=== PATIENT | female | born 2000 | race Caucasian/White ===

== ENCOUNTER 2018-09-11 15:25 | Inpatient (IN) | payer OTHER ==
[2018-09-11] MEDS ORDERED: CITRIC ACID/SODIUM CITRATE 30 ML UNIT-DOSE CUP PO ONE (17:22)
[2018-09-11 17:30] VITALS: BMI 26.8
[2018-09-11] MEDS ORDERED: ELECTROLYTE-148 SOLN 1,000 ML IV SCH (17:30)
[2018-09-11 18:51] LABS: BASO % 0.5 % (0-2.0); EOS % 1.7 % (0-4.5); HEMATOCRIT 37.2 % (32.4-45.2); LYMPH % 18.7 % (8-40); MCH 33.4 pg (25.7-33.7); MCHC 35.1 g/dl (32.0-36.0); MEAN CELL VOLUME 95.3 fl (80-96); MEAN PLT VOLUME 10.1 fl (7.5-11.1); MONO % 10.2 % (3.8-10.2); NEUT % 68.9 % (42.8-82.8); PLATELET COUNT 161 K/MM3 (134-434); RDW 13.2 % (11.6-15.6); WHITE BLOOD COUNT 6.5 K/mm3 (4.0-10.0)
[2018-09-11 19:12] LABS: INR 1.06 (0.83-1.09); PROTHROMBIN TIME (PATIENT) 12.5 SEC (9.7-13.0)
[2018-09-11 19:14] LABS: ACTIVATED PTT 28.4 SECONDS (25.2-36.5)
[2018-09-11] MEDS ORDERED: OXYTOCIN 20 UNITS in 0.9% NS 20 UNIT/1,000 ML INFUS.BAG IV ONE (19:26)
[2018-09-11 19:59] LABS: ANION GAP 10 MMOL/L (8-16); BLOOD UREA NITROGEN 5 mg/dL (7-18); CALCIUM 8.2 mg/dL (8.5-10.1); CHLORIDE 106 mmol/L (98-107); CO2 22 mmol/L (21-32); CREATININE 0.3 mg/dL (0.55-1.3); GLUCOSE,RANDOM 71 mg/dL (74-106); POTASSIUM 4.2 mmol/L (3.5-5.1); SODIUM 139 mmol/L (136-145)
--- NOTE | 2018-09-11 20:01 | HP ---
Past Medical History - Primary Care Physician PCP:: Quinton Dixon - Admission Chief Complaint: 40.4 weeks, post date, early labor, contracted pelvis , CPD, request of c/s History of Present Illness: 18 yo f 40.4 weeks c/o of contraction , cx 1 cm 70 vx -4 , fhr cat 1, patient has diverging pelvic side wall,contracted pelvis , unable to tolerate pelvic exam , efw 8 lb , vaginal delivery vs c/s discussed with patient via group care worker, risks and benfit of each explained to patient History Source: Patient Limitations to Obtaining History: No Limitations - Past Medical History ...: 2 ...Para: 0 ...Term: 0 ...: 0 ...Spon : 1 ...Induced : 0 ...Multiple Gestation: 0 ...EDC by Sono: 09/07/18 - Past Surgical History Hx Myomectomy: No Hx Transabdominal Cerclage: No - Smoking History Smoking history: Never smoked Have you smoked in the past 12 months: No - Alcohol/Substance Use Hx Alcohol Use: No - Social History Usual Living Arrangement: Yes: With Spouse History of Recent Travel: No Home Medications - Allergies Allergies/Adverse Reactions: Allergies Allergy/AdvReac Type Severity Reaction Status Date / Time No Known Drug Allergies Allergy Verified 09/11/18 17:30 - Home Medications Home Medications: Ambulatory Orders Ferrous Sulfate 325 mg PO DAILY 06/26/18 Vitamins (Sjr) - 1 tab PO DAILY 06/26/18 Review of Systems - Review of Systems Constitutional: reports: Malaise Eyes: reports: No Symptoms HENT: reports: Toothache Neck: reports: No Symptoms Cardiovascular: reports: No Symptoms Respiratory: reports: No Symptoms Gastrointestinal: reports: No Symptoms Genitourinary: reports: Frequency, Pain Breasts: reports: No Symptoms Reported Musculoskeletal: reports: Back Pain, Muscle Cramps Integumentary: reports: No Symptoms Neurological: reports: No Symptoms Endocrine: reports: No Symptoms Hematology/Lymphatic: reports: No Symptoms Psychiatric: reports: No Symptoms Physical Exam - Maternity Vital Signs: Vital Signs Temperature 98.1 F 09/11/18 18:00 Pulse Rate 98 H 09/11/18 18:00 Respiratory Rate 20 09/11/18 18:00 Blood Pressure 123/62 09/11/18 18:00 O2 Sat by Pulse Oximetry (%) Constitutional: Yes: Well Nourished, No Distress, Calm Eyes: Yes: WNL, Conjunctiva Clear, EOM Intact HENT: Yes: WNL, Atraumatic, Normocephalic Neck: Yes: WNL, Supple, Trachea Midline Cardiovascular: Yes: WNL, Regular Rate and Rhythm Breast(s): Yes: WNL - Abdominal Exam/OB Fundal Height: 40 Number of Fetuses: Single Presentation: Vertex Contractions: Yes Regularity: Irregular Intensity: Mod/Strong Heart Rate Location: LLQ Accelerations: Uniform Decelerations: None - Vaginal Exam/OB Vaginal Bleediing: Bloody Show Speculum Exam: No Dilatation (cm): 1cm Effacement (%): 70 Amniotic Membrane Status: Intact Presentation: Vertex/Position Station: -4 - Physical Exam Musculoskeletal: Yes: WNL Extremities: Yes: WNL Edema: Yes Edema: LLE: Trace, RLE: Trace Deep Tendon Reflex Grade: Normal +2 - Labs Lab Results: CBC, BMP 09/11/18 18:30 Hemorrhage Risk Assessment - Risk Factors Medium Risk Factors: Yes: None High Risk Factors: Yes: None Risk Score: 1 Risk Level: Medium Risk Problem List - Problems (1) Post term over 40 weeks Code(s): O48.0 - POST-TERM (2) Labor and delivery affected by abnormality of maternal pelvic organs Code(s): O75.89 - OTHER SPECIFIED COMPLICATIONS OF LABOR AND DELIVERY; O34.80 - MATERNAL CARE FOR OTH ABNLT OF PELVIC ORGANS, UNSP TRIMESTER (3) CPD (cephalo-pelvic disproportion) Code(s): O33.9 - MATERNAL CARE FOR DISPROPORTION, UNSPECIFIED Qualifiers: Cephalopelvic disproportion type: deformity of maternal pelvic bones Qualified Code(s): O33.0 - Maternal care for disproportion due to deformity of maternal pelvic bones Assessment/Plan afterdiscussion of pelvic finding and option discussed with patient, she is requesting c/s , risks discussed via group care worker plan for c/s
[2018-09-11] MEDS ORDERED: ceFAZolin SODIUM 1 GM VIAL ONE (22:15)
[2018-09-11] MEDS ORDERED: morphine SULFATE/Preservative Free 0.5 MG/ML (1cc Syringe) ONE (22:15)
[2018-09-11] MEDS ORDERED: morphine SULFATE/Preservative Free 0.5 MG/ML (1cc Syringe) SPIN ONE (22:26)
[2018-09-11] MEDS ORDERED: oxyCODONE HCL 5 MG TABLET PO PRN (23:09)
[2018-09-11] MEDS ORDERED: IBUPROFEN 600 MG TABLET (FP) PO PRN (23:09)
[2018-09-11] MEDS ORDERED: WITCH HAZEL 50% (TUCKS) 40 PAD/JAR PAD TP PRN (23:09)
[2018-09-11] MEDS ORDERED: BENZOCAINE 20% 57 GM BOTTLE TP PRN (23:09)
[2018-09-11] MEDS ORDERED: METHYLERGONOVINE MALEATE 0.2 MG/1 ML AMP IM PRN (23:09)
[2018-09-11] MEDS ORDERED: diphenhydrAMINE HCL 25 MG CAPSULE (FP) PO PRN (23:09)
[2018-09-11] MEDS ORDERED: BENZOCAINE 28 GM HEMORRHOIDAL OINTMENT PR PRN (23:09)
[2018-09-11] MEDS ORDERED: OXYTOCIN 20 UNITS in 0.9% NS 20 UNIT/1,000 ML INFUS.BAG IV SCH (23:15)
--- NOTE | 2018-09-11 23:52 | OP ---
DATE OF OPERATION: 09/11/2018 PREOPERATIVE DIAGNOSIS: Postdates , early labor, cephalopelvic disproportion, request section. POSTOPERATIVE DIAGNOSIS: Postdates , early labor, cephalopelvic disproportion, request section. PROCEDURE: Primary low segment transverse section. SURGEON: Khadijah Dixon M.D. CARPENTRY TEACHER: Steven Tomas ANESTHESIA: Spinal. ANESTHESIOLOGIST: Sreedhar Lewis M.D. ESTIMATED BLOOD LOSS: About 500 mL. FINDINGS: A live baby boy, Apgars 9 and 9. ROT position. OPERATION: Patient was taken to operating room with adequate epidural anesthesia. Abdomen and perineum were prepped and draped. Pfannenstiel abdominal skin incision was made. Abdominal wall was cut layer by layer until the peritoneum was exposed and incised. Upon entering the abdominal cavity, the lower uterine segment was identified, and uterovesical fold of the peritoneum was established. The bladder was pushed down. Then with the lower blade of the [place] retractor, a low transverse incision was made. The incision extended laterally. Amniotic sac was entered. Clear fluid. Head delivered. Nasopharynx was suctioned. A live baby was delivered without any difficulty. Placenta was delivered manually. Uterine cavity was cleared of all remaining tissue. Uterine incision was closed in 2 layers, the 1st layer with 0 Biosyn continuous suture, the 2nd layer with 0 Biosyn imbricating the 1st layer. There was some oozing on the mid portion of the incision which was sutured with interrupted suture of 0 Biosyn and hemostasis was established. Bladder flap was closed with 2-0 Biosyn continuous suture. Pelvic cavity several times irrigated, and no active bleeding was seen. All the lap, sponge, and instrument counts were correct. Peritoneum was closed with 0 Biosyn continuous suture. Muscles were brought together interrupted suture with 0 Biosyn. Fascia was closed with 0 Biosyn continuous sutures. Subcutaneous fat was closed with interrupted sutures 0 Biosyn, and the skin was closed with michelle. The patient tolerated the procedure well and left the OR in good condition. KHADIJAH DIXON M.D. [id number]
[2018-09-12] MEDS ORDERED: IBUPROFEN 800 MG/8 ML IJ IVPB ONE (00:02)
[2018-09-12] MEDS: IBUPROFEN 800 MG/8 ML IJ IVPB PRN ×2 (00:05→08:15)
[2018-09-12] MEDS: DEXTROSE 5%-LACTATED RINGERS 1,000 ML IV SCH (00:09)
[2018-09-12] MEDS: ONDANSETRON 4 MG/2 ML VIAL IVPUSH PRN ×3 (01:21→11:13)
[2018-09-12] MEDS: CEFAZOLIN 1 GM/D5W 1 GM/50 ML BAG IVPB SCH ×2 (03:03→10:03)
[2018-09-12 06:03] LABS: BASO % 0.5 % (0-2.0); EOS % 0.5 % (0-4.5); HEMATOCRIT 32.3 % (32.4-45.2); HEMOGLOBIN 11.4 GM/dL (10.7-15.3); LYMPH % 16.8 % (8-40); MCH 33.4 pg (25.7-33.7); MCHC 35.4 g/dl (32.0-36.0); MEAN CELL VOLUME 94.3 fl (80-96); MEAN PLT VOLUME 9.5 fl (7.5-11.1); MONO % 8.1 % (3.8-10.2); NEUT % 74.1 % (42.8-82.8); PLATELET COUNT 141 K/MM3 (134-434); RBC 3.42 M/mm3 (3.60-5.2); RDW 12.6 % (11.6-15.6); WHITE BLOOD COUNT 8.6 K/mm3 (4.0-10.0)
--- NOTE | 2018-09-12 08:23 | PN ---
Progress Note (short form) - Note Progress Note: pod 1, has mild cramps , occasional nausea CBC, BMP 09/12/18 05:56 09/11/18 18:30 Last Vital Signs Temp Pulse Resp BP Pulse Ox 97.7 F 103 H 20 95/55 L 100 09/12/18 06:14 09/12/18 06:14 09/12/18 06:14 09/12/18 06:14 09/11/18 23:45 abdomen soft, no distension, no cav uterus firm lochia mild no calf tenderness reed clear urine . impression pod 1 doing well, plan ambulate, advnce diet pain management Problem List - Problems (1) Post term over 40 weeks Code(s): O48.0 - POST-TERM (2) Labor and delivery affected by abnormality of maternal pelvic organs Code(s): O75.89 - OTHER SPECIFIED COMPLICATIONS OF LABOR AND DELIVERY; O34.80 - MATERNAL CARE FOR OTH ABNLT OF PELVIC ORGANS, UNSP TRIMESTER (3) CPD (cephalo-pelvic disproportion) Code(s): O33.9 - MATERNAL CARE FOR DISPROPORTION, UNSPECIFIED Qualifiers: Cephalopelvic disproportion type: deformity of maternal pelvic bones Qualified Code(s): O33.0 - Maternal care for disproportion due to deformity of maternal pelvic bones
--- NOTE | 2018-09-12 08:49 | PN ---
Progress Note (short form) - Note Progress Note: Anesthesia POD#1 S/P under Spinal with Duramorh VSS,some nausea, some pain,full leg strength No other complications seen. Amirah Lester MD.
[2018-09-12] MEDS: ENOXAPARIN NA (PORCINE) 40 MG/0.4 ML DISP.SYRIN SQ SCH (10:00)
[2018-09-12] MEDS: IBUPROFEN 600 MG TABLET (FP) PO PRN (17:45)
[2018-09-12] MEDS: ACETAMINOPHEN 325 MG TABLET (FP) PO PRN (17:45)
[2018-09-12] MEDS ORDERED: BISACODYL 10 MG SUPP.RECT PR PRN (23:09)
[2018-09-13] MEDS: SIMETHICONE 80 MG TAB.CHEW (FP) PO PRN ×4 (01:45→20:51)
[2018-09-13] MEDS: oxyCODONE HCL 5 MG TABLET PO PRN ×3 (01:49→16:58)
[2018-09-13] MEDS: IBUPROFEN 600 MG TABLET (FP) PO PRN ×3 (01:49→16:59)
[2018-09-13] MEDS: ENOXAPARIN NA (PORCINE) 40 MG/0.4 ML DISP.SYRIN SQ SCH (09:15)
--- NOTE | 2018-09-13 10:54 | PN ---
Progress Note (short form) - Note Progress Note: pod 2 no c/o ,voids ok, passing gas CBC, BMP 09/12/18 05:56 09/11/18 18:30 Last Vital Signs Temp Pulse Resp BP Pulse Ox 98.9 F 66 18 100/57 L 100 09/13/18 07:20 09/13/18 07:20 09/13/18 07:20 09/13/18 07:20 09/11/18 23:45 abdomen soft, no distention no cva , BS present incision dry, clean no calf tenderness pod 2 afebrile plan ambulate, advance diet, cbc in am Problem List - Problems (1) Post term over 40 weeks Code(s): O48.0 - POST-TERM (2) Labor and delivery affected by abnormality of maternal pelvic organs Code(s): O75.89 - OTHER SPECIFIED COMPLICATIONS OF LABOR AND DELIVERY; O34.80 - MATERNAL CARE FOR OTH ABNLT OF PELVIC ORGANS, UNSP TRIMESTER (3) CPD (cephalo-pelvic disproportion) Code(s): O33.9 - MATERNAL CARE FOR DISPROPORTION, UNSPECIFIED Qualifiers: Cephalopelvic disproportion type: deformity of maternal pelvic bones Qualified Code(s): O33.0 - Maternal care for disproportion due to deformity of maternal pelvic bones
[2018-09-13] MEDS ORDERED: SENNOSIDES/DOCUSATE COMBO (SENNA PLUS) TABLET (UD) PO PRN (22:00)
[2018-09-14] MEDS: ACETAMINOPHEN 325 MG TABLET (FP) PO PRN (01:16)
[2018-09-14] MEDS: oxyCODONE HCL 5 MG TABLET PO PRN ×3 (01:16→12:51)
[2018-09-14] MEDS: SIMETHICONE 80 MG TAB.CHEW (FP) PO PRN ×3 (01:17→12:51)
[2018-09-14] MEDS: IBUPROFEN 600 MG TABLET (FP) PO PRN ×2 (07:25→12:51)
[2018-09-14 08:17] LABS: BASO % 0.3 % (0-2.0); EOS % 0.9 % (0-4.5); HEMATOCRIT 33.6 % (32.4-45.2); LYMPH % 22.4 % (8-40); MCH 34.2 pg (25.7-33.7); MCHC 35.7 g/dl (32.0-36.0); MEAN CELL VOLUME 95.8 fl (80-96); MEAN PLT VOLUME 9.7 fl (7.5-11.1); MONO % 8.3 % (3.8-10.2); NEUT % 68.1 % (42.8-82.8); PLATELET COUNT 154 K/MM3 (134-434); RDW 12.8 % (11.6-15.6); WHITE BLOOD COUNT 7.2 K/mm3 (4.0-10.0)
[2018-09-14] MEDS: ENOXAPARIN NA (PORCINE) 40 MG/0.4 ML DISP.SYRIN SQ SCH (10:10)
--- NOTE | 2018-09-14 10:10 | PN ---
Progress Note (short form) - Note Progress Note: pod 3 doing well, has low abdominal cramps, passing gas, voids ok CBC, BMP 09/14/18 07:15 09/11/18 18:30 Last Vital Signs Temp Pulse Resp BP Pulse Ox 97.9 F 80 20 97/64 100 09/14/18 07:20 09/14/18 07:20 09/14/18 07:20 09/14/18 07:20 09/11/18 23:45 abdomen soft, no distension, no cva , BS present incison dry, clean no calf tenderness pod 3 doing well plan pain management , for d/c home in am Problem List - Problems (1) Post term over 40 weeks Code(s): O48.0 - POST-TERM (2) Labor and delivery affected by abnormality of maternal pelvic organs Code(s): O75.89 - OTHER SPECIFIED COMPLICATIONS OF LABOR AND DELIVERY; O34.80 - MATERNAL CARE FOR OTH ABNLT OF PELVIC ORGANS, UNSP TRIMESTER (3) CPD (cephalo-pelvic disproportion) Code(s): O33.9 - MATERNAL CARE FOR DISPROPORTION, UNSPECIFIED Qualifiers: Cephalopelvic disproportion type: deformity of maternal pelvic bones Qualified Code(s): O33.0 - Maternal care for disproportion due to deformity of maternal pelvic bones
[2018-09-15] MEDS: DEXTROSE 5%-LACTATED RINGERS 1,000 ML IV SCH ×2 (02:14→02:31)
[2018-09-15] MEDS: IBUPROFEN 600 MG TABLET (FP) PO PRN ×2 (02:17→10:10)
[2018-09-15] MEDS: ACETAMINOPHEN 325 MG TABLET (FP) PO PRN ×2 (02:18→10:10)
--- NOTE | 2018-09-15 08:27 | DS ---
Physical Exam-CAMPUS REP Vital Signs: Vital Signs Temperature 98.1 F 09/14/18 21:45 Pulse Rate 93 H 09/14/18 21:45 Respiratory Rate 20 09/14/18 21:45 Blood Pressure 107/61 09/14/18 21:45 O2 Sat by Pulse Oximetry (%) 100 09/11/18 23:45 Constitutional: Yes: Well Nourished, No Distress, Calm Eyes: Yes: WNL, Conjunctiva Clear, EOM Intact HENT: Yes: WNL, Atraumatic, Normocephalic Neck: Yes: WNL, Supple, Trachea Midline Cardiovascular: Yes: WNL, Regular Rate and Rhythm Respiratory: Yes: WNL, Regular, CTA Bilaterally Gastrointestinal: Yes: WNL ...Rectal Exam: Yes: WNL Renal/: Yes: WNL ....Post : Yes: Uterus firm, Uterus non-tender, Slight lochia rubra Breast(s): Yes: WNL Musculoskeletal: Yes: WNL Extremities: Yes: WNL Integumentary: Yes: WNL Wound/Incision: Yes: Clean/Dry, Well Approximated, [place] Intact Neurological: Yes: WNL, Alert, Oriented ...Motor Strength: WNL Psychiatric: Yes: WNL, Alert, Oriented Labs: CBC, BMP 09/14/18 07:15 09/11/18 18:30 Delivery - Delivery Section: Primary, Low Flap Transverse (no complication) Type of Anesthesia: Spinal Episiotomy/Laceration: None EBL (cc): 500 Delivery, Single - Stages of Labor Date of Delivery: 09/11/18 Time of Delivery: 22:39 Time Placenta Delivered: 22:40 Placenta: Yes: Expressed - Condition of Director Of Entertainment/Brake Lining Finisher Present: No Gender: Male Weight: 7 lb 11 oz Position: Left, OA Total Hours ROM (Hrs/Mins): 2MIN. - 1 Minute Total Score: 9 5 Minutes Total Score: 9 - [place] Feeding Plan Initial Plan: Elected not to breastfeed exclusively throughout hospitalization Discharge Summary Reason For Visit: LABOR Current Active Problems CPD (cephalo-pelvic disproportion) (Acute) Labor and delivery affected by abnormality of maternal pelvic organs (Acute) Post term over 40 weeks (Acute) Procedures: Principal: primary LST c/s Condition: Good - Instructions Diet, Activity, Other Instructions: regular, diet, no intercourse , follow up [facility] 1week for michelle removal if fever, pain, heavy vaginal bleeding call md rowan p[facility] Referrals: Quinton Dixon MD [Staff Physician] - Disposition: HOME - Home Medications Comprehensive Discharge Medication List: Ambulatory Orders Ferrous Sulfate 325 mg PO DAILY 06/26/18 Vitamins (Sjr) - 1 tab PO DAILY 06/26/18 Ibuprofen [Motrin -] 600 mg PO QID #28 tablet 09/13/18
[2018-09-15 09:05] VITALS: BP 97/64; PULSE 78; TEMP 97.9
[2018-09-15] MEDS: SIMETHICONE 80 MG TAB.CHEW (FP) PO PRN (10:10)
[2018-09-15] MEDS: ENOXAPARIN NA (PORCINE) 40 MG/0.4 ML DISP.SYRIN SQ SCH (10:11)
--- NOTE | 2018-09-23 17:46 | PATH ---
Surgical Pathology Report Patient Name: DARREN KOO [facility]. Rec. 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 Specimen(s) Received PLACENTA Clinical History , cephaopelvic disproportion SPAB x1 2018, Dengue fever 2016 Late to [facility], history of short cervix, celestene x2 06/14/18 Final Diagnosis PLACENTA: THIRD TRIMESTER PLACENTA WITH FOCAL SUBCHORIONIC ACUTE INFLAMMATION. TRIVASCULAR CORD. MEMBRANES WITH NO DIAGNOSTIC ABNORMALITIES. Electronically Signed Caleb Jiménez M.D. Gross Description The specimen is received fresh labeled placenta and is a 496 gram, 6.5 x 15.0 x 2.7 cm. placenta with attached membranes and umbilical cord. The attached membranes are smith, thick, cloudy and insert marginally. The umbilical cord measures 30 cm. in length and averages 1 cm. in diameter. The cord inserts eccentrically, 5 cm. to the nearest margin. No true knots or strictures are identified. Cut surface of the umbilical cord reveals 3 vessels. The surface is chakraborty-blue with minimal fibrin deposition and appropriate caliber vessels. The maternal surface is red-brown with focal defects. Sectioning reveals red-brown, spongy parenchyma. No lesions are identified. Internet Sales Consultant sections are submitted in three cassettes as follows: 1- membrane rolls and umbilical cord; 2-3- full thickness sections of placenta. /09/22/2018 [facility]09/22/2018
== END 2018-09-15 13:15 | disposition home or self-care (01) | DRG 540 ==
LOC: JDEL 15:25 → JLDR 17:00 → J3W 09-12 00:46
PROVIDERS: ADMIT Obstetrics & Gynecology; ATTEND Obstetrics & Gynecology
PROC: 10D00Z1 Extraction of Products of Conception, Low, Open Approach (ICD-10-PCS; principal; 2018-09-11)
DX: O48.0 Post-term pregnancy (principal); O34.83 Maternal care for other abnormalities of pelvic organs, third trimester; O33.0 Maternal care for disproportion due to deformity of maternal pelvic bones; Z3A.40 40 weeks gestation of pregnancy; Z37.0 Single live birth
CPT/HCPCS: 36415; 80048; 85025; 85610; 85730; 86593; 86850; 86900; 86901; 88307-TC